=== PATIENT | male | born 1960 | race Caucasian/White ===

== ENCOUNTER 2024-03-11 15:03 | Emergency (ER) | payer BC, SELFPAY ==
[2024-03-11 16:30] VITALS: BP 136/63
[2024-03-11 17:00] VITALS: BP 131/71
--- NOTE | 2024-03-11 19:23 | ED.GENMED ---
History of Present Illness
General
Chief Complaint: Numbness
Source: patient
Exam Limitations: none
Time Seen by Provider: 03/11/24 16:57
Nursing documentation reviewed up to this point in time: agreed with
History of Present Illness
History of Present Illness:
Patient presents to ED secondary to sudden onset of bilateral arm pain, shortly after he was pushing the shopping cart this afternoon. He stopped immediately and went out to his car. While resting, his pain dissipated, but shortly afterwards, he
noted tingling sensation along his right pinky finger extending up to his elbow. Since then, that tingling sensation has persisted, although improved. Denies loss of sensation. Denies weakness. Denies headache or dizziness. Denies neck pain.
Denies difficulty with speech. Denies difficulty with ambulation. Denies previous history of similar symptoms.
Past History
Past History
ED Past Medical History: HTN and Hypercholesterolemia
ED Past Surgical History: None
Social History
Tobacco: Non-smoker
Review of Systems
Review of Systems
Allergies reviewed?: Yes
All Other Systems: ROS reviewed and negative except as documented in HPI and ROS
Constitutional: Reports no symptoms
EENT: Reports no symptoms
Respiratory: Reports no symptoms
Cardiac: Reports no symptoms
ABD/GI: Reports no symptoms
: Reports no symptoms
Musculoskeletal: Reports no symptoms; Denies neck pain
Skin: Reports no symptoms
Neurological: Reports numbness; Denies dizzy, headache or weakness
Phy Exam
Physical Exam
Physical Exam:
Physical Exam
General: no apparent distress, not acutely ill. afebrile.
Head: nc/at. eomi
Neck: supple. normal range of motion. no midline tenderness.
Heart: s1/s2 regular rate and rhythm, no murmur. equal radial pulses.
Lungs: no acute respiratory distress. clear bilaterally
Abdomen: normal bowel sounds. not tender.
Neuro: alert and oriented. no focal neurological deficits. normal speech. normal gait.
Skin: no rash
Psychiatric: well kept. interactive and cooperative
Extremities: no edema. no calf tenderness.
Course
Orders/Labs/Results
Orders:
Orders
03/11/24 15:17
ECG [Electrocardiogram (*1)] Urgent
Reason for Study: Bradycardia / Tachycardia
EKG- Treatment ONCE
03/11/24 17:49
CT Head W/o Iv Contrast Urgent
Comment:
Reason For Exam: RUE numbness
Vital Signs
Initial and Last Documented VS:
Initial Vital Signs
Temp Pulse Resp Pulse Ox
98.2 F 60 18 99
03/11/24 15:13 03/11/24 15:13 03/11/24 15:13 03/11/24 15:13
Last Documented Vital Signs
Temp Pulse Resp BP Pulse Ox
98.2 F 60 18 131/71 98
03/11/24 15:13 03/11/24 15:13 03/11/24 15:13 03/11/24 17:00 03/11/24 18:15
MDM/Problems Addressed
MDM/Problems Addressed:
CT head: No acute findings. History and exam - less likely CVA but but more likely peripheral paresthesia nonspecific. However, difficult to exclude possibility of TIA, despite minimal risk factors. Patient will be advised to start 81 mg aspirin,
until reevaluation with his primary neurologist, whom he has been seeing for essential tremor. Patient advised to return to ED with any worsening symptoms. Patient otherwise is hemodynamically and neurologically intact, at time of discharge.
*Critical Care Note
Total Time (30-74mins, 75-104mins- exclusive of procedures): Not Applicable
ED Attending Note
-
Portions of this chart may have been created with voice recognition software.� Occasional wrong word or��sound alike� substitutions may have occurred due to the inherent limitations of voice recognition software.
Discharge Plan
Departure
Patient Disposition: Home (Routine Discharge)
Date of Disposition: 03/11/24
Time of Disposition: 19:28
Patient with high blood pressure during this ER visit?: Yes
Condition: Good
Discharge Problem:
Paresthesia
Instructions: Paresthesia (DC)
Prescriptions:
No Action
Rosuvastatin Calcium 10 MG
10 mg PO DAILY
Referrals:
Johann Horton MD [Family Provider] -
Activity Restrictions/Additional Instructions:
As discussed, please follow-up with your neurologist for reevaluation. Until then, recommend taking 81 mg aspirin daily.
Interventions
Interventions:
*Risk Screen - Suicide Last Done: 03/11/24 15:13
*General Assessment Last Done: 03/11/24 15:13
*Neglect/Abuse Screening Last Done: 03/11/24 15:13
ED- Fall Risk Assessment Last Done: 03/11/24 20:30
*Nursing Disposition Last Done: 03/11/24 20:30
ED- Neurological Assessment Last Done: 03/11/24 17:27
Discharge Date and Time
Discharge Date/Time: 03/11/24 20:30
Print Language: JAPANESE
== END 2024-03-11 20:30 | disposition home or self-care (01) ==
LOC: EMR 15:03
PROVIDERS: EMERGENCY PHYSICIAN Emergency Medicine; FAMILY PHYSICIAN Internal Medicine
DX: R20.2 Paresthesia of skin (principal); I10 Essential (primary) hypertension; E78.00 Pure hypercholesterolemia, unspecified
CPT/HCPCS: 99284; 70450; 93005

== ENCOUNTER 2024-04-24 10:29 | Emergency (ER) | payer BC, SELFPAY ==
[2024-04-24 10:43] VITALS: BP 146/82
[2024-04-24 11:03] LABS: % Basophils 0.6 % (0-2); % Eosinophils 6.1 % (0-6); % Immature Granulocytes 0.3 % (0-0.5); % Lymphocytes 22.6 % (20.5-51.1); % Neutrophils 62.4 % (42.2-75.2); Absolute Eosinophils 0.4 10^3/uL (0-0.7); Absolute Lymphocytes 1.6 10^3/uL (1.2-3.4); Absolute Monocytes 0.6 10^3/uL (0.1-0.6); Absolute Neutrophils 4.5 10^3/uL (1.4-6.5); Hematocrit 45.5 % (39.0-52.0); Hemoglobin 15.8 g/dL (13.0-18.0); Mean Corp Hgb Conc. 34.7 g/dL (33.0-37.0); Mean Corpuscular Hgb 31.8 pg (27.0-31.0); Mean Corpuscular Volume 91.5 fL (80.0-94.0); Mean Platelet Volume 9.8 fL (7.4-10.4); Nucleated Red Blood Cells % 0 % (-); Platelet Count 184 10^3/uL (130-400); Red Blood Cell Count 4.97 10^6/uL (4.70-6.10); Red Cell Dist. Width 12.3 % (11.5-14.5); White Blood Cell Count 7.3 10^3/uL (4.8-10.8)
[2024-04-24 11:33] LABS: ALT (SGPT) 25 U/L (0-50); AST (SGOT) 26 U/L (17-59); Albumin 4.5 g/dl (3.5-5.0); Alkaline Phosphatase 50 U/L (38-126); Blood Urea Nitrogen 18 mg/dl (9-20); Calcium 9.5 mg/dl (8.4-10.2); Carbon Dioxide 28 mmol/L (22-30); Chloride 105 mmol/L (98-107); Glucose 117 mg/dl (70-99); Lipase 498 U/L (23-300); Potassium 4.6 mmol/L (3.5-5.1); Sodium 140 mmol/L (135-145); Total Protein 6.8 g/dl (6.3-8.2); eGFR > 60.00
--- NOTE | 2024-04-24 11:47 | ED.GENMED ---
History of Present Illness
General
Chief Complaint: Abdominal Pain
Time Seen by Provider: 04/24/24 11:36
History of Present Illness
History of Present Illness:
64-year-old male presents to the emergency department for eval ration of left lower abdominal pain for the past 4 days. Pain gradually worsening. Denies fevers or chills. Does feel constipated however laxatives have not provided any benefit. No
nausea or vomiting.
Past History
Past History
ED Past Medical History: HTN and Hypercholesterolemia
ED Past Surgical History: None
Social History
Tobacco: Non-smoker
Review of Systems
Review of Systems
Allergies reviewed?: Yes
All Other Systems: ROS reviewed and negative except as documented in HPI and ROS
Phy Exam
Physical Exam
Physical Exam:
GEN: Well appearing, NAD, WDWN
HEENT: Oral mucosa moist, no scleral icterus
Cardiac: Regular rate
Lung: No respiratory distress, no tachypnea
Abdomen: Soft, moderate left abdominal tenderness this is nonfocal, no rigidity
MSK: No gross deformity or injuries
Skin: Good color, no pallor or jaundice, no rashes
Neuro: AO x3, moves all extremities freely
Psych: Calm, cooperative
Course
Orders/Labs/Results
Orders:
Orders
04/24/24 10:53
Complete Blood Count/With Diff Urgent
Comprehensive Metabolic Panel Urgent
Lipase Urgent
04/24/24 11:48
CT Abd/Pel (IV only)-DH only Urgent
Comment:
Reason For Exam: LLQ pain
04/24/24 13:37
Ketorolac [Toradol] 15 mg IV NOW STA
04/24/24 14:20
Urinalysis Reflex To Culture Urgent
Date Specimen was Collected: 04/24/24
Time Specimen was Collected: 14:19
Abnormal Lab Results
04/24/24
10:53
MCH 31.8 H pg
(27.0-31.0)
Eosinophils % 6.1 H %
(0-6)
Glucose 117 H mg/dl
(70-99)
Lipase 498 H U/L
(23-300)
04/24/24 10:53
04/24/24 10:53
Vital Signs
Initial and Last Documented VS:
Initial Vital Signs
Temp Pulse Resp BP Pulse Ox
98.2 F 71 16 146/82 99
04/24/24 10:43 04/24/24 10:43 04/24/24 10:43 04/24/24 10:43 04/24/24 10:43
Last Documented Vital Signs
Temp Pulse Resp BP Pulse Ox
98.2 F 55 18 135/71 99
04/24/24 10:43 04/24/24 15:07 04/24/24 15:07 04/24/24 15:07 04/24/24 10:43
MDM/Problems Addressed
MDM/Problems Addressed:
CT scan is unremarkable. His lipase is mild elevated however threshold to meet criteria for acute pancreatitis, additionally pain does not clearly localize to the epigastrium to suggest this is acute pancreatitis. His pain did improve with NSAIDs.
I did recommend clear liquid diet on the off chance that this could improve his symptoms if there is any correlation to the elevated lipase. Recommend primary care follow-up or ED return if symptoms worsen
*Critical Care Note
Total Time (30-74mins, 75-104mins- exclusive of procedures): Not Applicable
ED Attending Note
-
Portions of this chart may have been created with voice recognition software.� Occasional wrong word or��sound alike� substitutions may have occurred due to the inherent limitations of voice recognition software.
Discharge Plan
Departure
Patient Disposition: Home (Routine Discharge)
Date of Disposition: 04/24/24
Time of Disposition: 14:57
Patient with high blood pressure during this ER visit?: No
Discharge Problem:
Left sided abdominal pain
Instructions: Abdominal Pain
Prescriptions:
No Action
Rosuvastatin Calcium 10 MG
10 mg PO DAILY
Referrals:
Johann Horotn MD [Family Provider] -
Activity Restrictions/Additional Instructions:
Clear liquids for 48 hours
Return if symptoms worsen
Interventions
Interventions:
*Risk Screen - Suicide Last Done: 04/24/24 10:43
*General Assessment Last Done: 04/24/24 10:43
*Neglect/Abuse Screening Last Done: 04/24/24 10:43
*ED COVID-19 Vaccine History Last Done: 04/24/24 10:43
*Nursing Disposition Last Done: 04/24/24 15:09
HF-[id number] Assessment Last Done: 04/24/24 13:45
Discharge Date and Time
Discharge Date/Time: 04/24/24 15:09
Print Language: CROATIAN
[2024-04-24] MEDS: TORADOL 15 MG IV (13:39)
[2024-04-24 14:55] LABS: Urine Albumin Negative (Neg - Trace); Urine Bilirubin Negative (Negative); Urine Character Clear (Clear); Urine Color Yellow; Urine Glucose Negative (Negative); Urine Ketone Negative (Negative); Urine Leukocyte Negative (Negative); Urine Nitrite Negative (Negative); Urine Occult Blood Negative (Negative); Urine Specific Gravity 1.005 (<1.030); Urine Urobilinogen Negative (Neg - 1+)
[2024-04-24 15:07] VITALS: BP 135/71
== END 2024-04-24 15:09 | disposition home or self-care (01) ==
LOC: EMR 10:29
PROVIDERS: Emergency Medicine; Physician Assistant; EMERGENCY PHYSICIAN Emergency Medicine; FAMILY PHYSICIAN Internal Medicine
DX: R10.32 Left lower quadrant pain (principal); I10 Essential (primary) hypertension; E78.00 Pure hypercholesterolemia, unspecified
CPT/HCPCS: 99284; 96374; 74177; 80053; 81003; 83690; 85025; Q9967